=== PATIENT | male | born 1980 | race Caucasian/White ===

== ENCOUNTER 2020-03-03 04:57 | Emergency (ER) | payer MEDICAID ==
[~2020-03-03] VITALS: Ht 175.3 cm; Wt 74.8 kg
[~2020-03-03 04:57] MED LIST: LIBRIUM25 MG PO
[2020-03-03 05:00] VITALS: BP 134/82
--- NOTE | 2020-03-03 05:00 | NUR ---
ED Nurse Note: Seizure was unwitnessed and pt cannot provide details.
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
[2020-03-03] MEDS ORDERED: LORazepam Inj 2mg/ml 1ml IV ONE (05:15)
[2020-03-03 05:28] LABS: BASOPHILS % (AUTO) 1.2 % (0.0-2.0); EOSINOPHILS % (AUTO) 2.2 % (0.0-3.0); HEMATOCRIT 37.3 % (42.0-52.0); HEMOGLOBIN 11.5 G/DL (14.2-18.0); LYMPHOCYTES % (AUTO) 16.9 % (20.0-45.0); MEAN CORPUSCULAR VOLUME 88 FL (80-99); MONOCYTES % (AUTO) 5.2 % (1.0-10.0); NEUTROPHILS % (AUTO) 74.6 % (45.0-75.0); PLATELET COUNT 188 K/UL (150-450); RED BLOOD COUNT 4.22 M/UL (4.70-6.10); RED CELL DISTRIBUTION WIDTH 16.8 % (11.6-14.8); WHITE BLOOD COUNT 5.3 K/UL (4.8-10.8)
[2020-03-03 05:29] LABS: ANION GAP 16 mmol/L (5-15); BLOOD UREA NITROGEN 8 mg/dL (7-18); CALCIUM 8.6 MG/DL (8.5-10.1); CARBON DIOXIDE 23 MMOL/L (21-32); CHLORIDE 101 MMOL/L (98-107); CREATININE 0.7 MG/DL (0.55-1.30); POTASSIUM 3.3 MMOL/L (3.5-5.1); SODIUM 140 MMOL/L (136-145)
[2020-03-03 05:33] LABS: ALANINE AMINOTRANSFERASE 18 U/L (12-78); ALBUMIN/GLOBULIN RATIO 1.2 (1.0-2.7); ALKALINE PHOSPHATASE 130 U/L (46-116); ASPARTATE AMINO TRANSFERASE 37 U/L (15-37); BILIRUBIN,TOTAL 0.9 MG/DL (0.2-1.0)
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
--- NOTE | 2020-03-03 06:38 | Diagnostic Imaging Report ---
EXAM: CT Head Without Intravenous Contrast CLINICAL HISTORY: Seizure TECHNIQUE: Axial computed tomography images of the head/brain without intravenous contrast. CTDI is 53.4 mGy and DLP is 1259 mGy-cm. One or more of the following dose reduction techniques were used: automated exposure control, adjustment of the mA and/or kV according to patient size, use of iterative reconstruction technique. COMPARISON: No relevant prior studies available. FINDINGS: Brain: There is no evidence of acute intracranial hemorrhage. No acute mass effect or midline shift. Encephalomalacia and associated volume loss seen within the left temporal, frontal and parietal lobes, likely associated with prior infarct or traumatic injury. Ventricles: Mild ex vacuo dilatation of the left lateral ventricle. Ventricular volumes are otherwise within normal limits. Bones/joints: No acute osseous abnormality. Postsurgical changes consistent with left frontotemporal craniotomy. Chronic facial fractures identified. Soft tissues: Mild right supraorbital scalp soft tissue swelling. Sinuses: Mucosal thickening seen within the right maxillary sinus. Remaining paranasal sinuses are well pneumatized. Mastoid air cells: Unremarkable as visualized. No mastoid effusion. IMPRESSION: No evidence of acute intracranial abnormality. Encephalomalacia and volume loss in the left cerebral hemisphere likely secondary to prior infarct or traumatic injury.
--- NOTE | 2020-03-03 06:48 | Diagnostic Imaging Report ---
EXAM: CT Maxillofacial Without Intravenous Contrast CLINICAL HISTORY: Seizure TECHNIQUE: Axial computed tomography images of the face without intravenous contrast. CTDI is 15.3 mGy and DLP is 389 mGy-cm. One or more of the following dose reduction techniques were used: automated exposure control, adjustment of the mA and/or kV according to patient size, use of iterative reconstruction technique. COMPARISON: No relevant prior studies available. FINDINGS: Bones/joints: There are mildly displaced fractures of bilateral nasal bones, bony nasal septum, anterior and posterolateral rangel of the right maxillary sinus, and lateral wall of the right orbit. Some of these are almost certainly chronic. Soft tissues: Mild right periorbital and nasal soft tissue swelling. Orbits: The ocular globes, extraocular muscles and optic nerves are symmetric. No evidence of intraorbital hemorrhage. Sinuses: Mucosal thickening within the right maxillary sinus with possible mild blood products versus mucoid debris. IMPRESSION: Facial fractures as described above, some of which are chronic. Right periorbital soft tissue swelling. Mucosal thickening with possible mild blood products versus mucoid debris seen in the right maxillary sinus.
--- NOTE | 2020-03-03 07:10 | NUR ---
ED Nurse Note: Report received from JC Mooney. Pt is lying comfortably in semi-fowlers with no signs of distress. A+Ox4, respirations even and unlabored on room air. vitals stable as documented.
--- NOTE | 2020-03-03 08:04 | NUR ---
ED Nurse Note: sandwich and juice provided for patient
--- NOTE | 2020-03-03 09:42 | NUR ---
ED Nurse Note: TAP card provided.
--- NOTE | 2020-03-03 09:43 | NUR ---
Homeless Discharge: Patient is being discharged from medical care. Awake, alert and oriented x4. After care instructions, including referral to community resources were given. Patient verbalized understanding of After care instructions; at this time patient does not request medications, equipment or placement. Pt declined to provide destination upon discharge and signed the homeless discharge paperwork. All medical devices such as IV and ID band were removed. Patient ambulated out with all personal belongings with steady gait. [place] and juice provided. Pt provided socks. All other clothing adequate.
[2020-03-03 09:47] VITALS: BP 133/74
== END 2020-03-03 09:43 | disposition home or self-care (01) ==
LOC: EDBD 04:57 → EMR 05:06
DX: G40.909 Epilepsy, unspecified, not intractable, without status epilepticus (principal); S02.2XXA Fracture of nasal bones, initial encounter for closed fracture; S02.19XA Other fracture of base of skull, initial encounter for closed fracture; S02.841A Fracture of lateral orbital wall, right side, initial encounter for closed fracture; F10.129 Alcohol abuse with intoxication, unspecified; X58.XXXA Exposure to other specified factors, initial encounter; Y92.9 Unspecified place or not applicable; F15.10 Other stimulant abuse, uncomplicated; R00.0 Tachycardia, unspecified; G93.89 Other specified disorders of brain
CPT/HCPCS: 36415; 70450; 70486; 80053; 80307; 85025; 93005; 96361; 96374; G0480; G0481; J7030; Z7502; 99284